=== PATIENT | male | born 2000 | race Caucasian/White ===

== ENCOUNTER → 2023-10-10 | Outpatient (CLI) | payer OTHER ==
--- NOTE | 2023-10-10 14:42 | Diagnostic Imaging Report ---
Indication: Left-sided chest tenderness. Time of Exam: 2:18 PM Heart size normal. Lungs are clear. There is no effusion or pneumothorax. No displaced rib fractures identified. Impression: No acute abnormality is identified. Dictated by: Dictated on workstation # [id number]
== END ==
LOC: RAD 13:59
PROVIDERS: ATTEND Registered Nurse Critical Care Medicine
DX: R07.89 Other chest pain (principal); R06.09 Other forms of dyspnea; R06.02 Shortness of breath
CPT/HCPCS: 71101